=== PATIENT | male | born 1970 | race Caucasian/White ===

== ENCOUNTER 2017-01-09 16:11 | Emergency (ER) ==
[2017-01-09 16:22] VITALS: BP 124/82; TEMP 99.6; BMI 32.5
--- NOTE | 2017-01-09 16:38 | ED.PDOC ---
General ED Provider: Dr. EDDI GILES Chief Complaint: Eye Problem Stated Complaint: pt states his eye has been red the past 3 days, today it has been itchy and watering. Time Seen by Physician: 16:31 Mode of Arrival: Walk-In Information Source: Patient Exam Limitations: No limitations Primary Care Provider: KE ARECHIGA Nursing and Triage Documentation Reviewed and Agree: Yes Review of Systems - Review Of Systems Constitutional: Reports: No symptoms Eyes: Reports: Drainage, Pain, Photophobia Ears, Nose, Mouth, Throat: Reports: No symptoms Respiratory: Reports: No symptoms Cardiac: Reports: No symptoms GI: Reports: No symptoms : Reports: No symptoms Musculoskeletal: Reports: No symptoms Skin: Reports: No symptoms Neurological: Reports: No symptoms Endocrine: Reports: No symptoms Hematologic/Lymphatic: Reports: No symptoms All Other Systems: Reviewed and Negative Past Medical History - Past Medical History Endocrine: Reports: None Cardiovascular: Reports: None Respiratory: Reports: None Hematological: Reports: None Gastrointestinal: Reports: None Genitourinary: Reports: None Neuro/Psych: Reports: None Musculoskeletal: Reports: None Cancer: Reports: None - Surgical History General Surgical History: Reports: Cholecystectomy - Family History Family History: Reports: None - Social History Smoking Status: Chews tobacco Hx Substance Use: No Alcohol Screening: None - Immunizations Tetanus Shot up to Date: Yes Physical Exam - Physical Exam Appearance: Well-appearing, No pain distress, Well-nourished Eyes: DORIS, EOMI, Conjunctiva inflammed (on the right. ) ENT: Ears normal, Nose normal, Oropharynx normal Respiratory: Airway patent, Breath sounds clear, Breath sounds equal, Respirations nonlabored Cardiovascular: RRR, Pulses normal, No rub, No murmur GI/: Soft, Nontender, No masses, Bowel sounds normal, No Organomegaly Musculoskeletal: Normal strength, ROM intact, No edema, No calf tenderness Skin: Warm, Dry, Normal color Neurological: Sensation intact, Motor intact, Reflexes intact, Cranial nerves intact, Alert, Oriented Psychiatric: Affect appropriate, Mood appropriate Critical Care Note - Critical Care Note Total Time (mins): 0 Course - Course Vital Signs: Temp Pulse Resp BP Pulse Ox 01/09/17 16:12 99.6 F 73 16 124/82 97 Departure - Departure Time of Disposition: 16:31 Disposition: HOME SELF-CARE Discharge Problem: Acute conjunctivitis Qualifiers: Acute conjunctivitis type: bacterial Laterality: right Qualifier Code: (H10.31 ) Unspecified acute conjunctivitis, right eye Instructions: Conjunctivitis (ED) Condition: Fair Pt referred to PMD for follow-up: Yes Additional Instructions: use eye drops every 4 hours for 10 days. Follow up with PCP in 3 days Prescriptions: Ciprofloxacin Opth Antionette [Cipro 0.3% Opth Antionette] 1 drop OP Q4HR #10 drops Allergies/Adverse Reactions: Allergies No Known Allergies Allergy (Unverified 01/09/17 16:22) Home Medications: Ambulatory Orders Ciprofloxacin Opth Antionette [Cipro 0.3% Opth Antionette] 1 drop OP Q4HR #10 drops 01/09/17 Oxymetazoline HCl [Allyson] PRN PRN 01/09/17 Disposition Discussed With: Patient
== END 2017-01-09 16:52 | disposition home or self-care (01) ==
LOC: ED 16:11
DX: H10.31 Unspecified acute conjunctivitis, right eye (principal); F17.220 Nicotine dependence, chewing tobacco, uncomplicated
CPT/HCPCS: 99282